=== PATIENT | female | born 1935 | race Caucasian/White ===

== ENCOUNTER 2018-07-28 17:15 | Inpatient (IN) | payer OTHER ==
[~2018-07-28] VITALS: Ht 162.6 cm; Wt 51.0 kg
[~2018-07-28 17:15] MED LIST: AML5T GT; BENA20TA14 PO; LOVA20TA4 PO; RANI-229 PO
[2018-07-28 18:45] LABS: Basophils # (auto) 0 uL; Basophils % (auto) 0.5 % (0.0-2.0); Eosinophils # (auto) 0.1 uL; Eosinophils % (auto) 2.6 % (0.0-7.0); Hematocrit 25.3 % (36.0-46.0); Hemoglobin 8.8 g/dL (12.2-16.2); Lymphocytes # (auto) 0.4 uL; Mean Corpuscular Hemoglobin 31.8 pg (28.0-32.0); Mean Corpuscular Hgb Conc. 34.7 g/dL (32.0-36.0); Mean Corpuscular Volume 91.8 fL (80.0-100.0); Monocytes # (auto) 0.6 uL; Monocytes % (auto) 10.1 % (0.0-12.0); Neutrophils # (auto) 4.5 uL; Neutrophils % (auto) 79.8 % (37.0-80.0); Platelet Count (auto) 338 10^3/uL (140-450); Red Blood Cells 2.76 10^6/uL (4.0-5.20); Red Cell Distribution Width 17.2 % (11.8-14.3); White Blood Cell 5.7 10^3/uL (4.4-10.8)
[2018-07-28] MEDS ORDERED: methylPREDNISolone SOD SUCC 125 MG/2 ML VL IV ONE (19:00)
[2018-07-28] MEDS ORDERED: cefTRIAXone 1GM/50ML D5W 50 ML IV ONE (19:00)
[2018-07-28] MEDS ORDERED: IPRATROPIUM BROM 0.5 MG/2.5ML INH SOL NEB ONE (19:00)
[2018-07-28] MEDS ORDERED: ALBUTEROL SULF 2.5 MG/0.5ML(0.5%) NEB SOLN NEB ONE (19:00)
[2018-07-28 19:23] LABS: Albumin 2.7 g/dL (3.4-5.0); Calcium 7.6 mg/dL (8.5-10.1); Magnesium 2.4 mg/dL (1.6-2.6); Potassium 4.8 mmol/L (3.5-5.1)
[2018-07-28 19:28] LABS: BUN/Creatinine Ratio 25.8; Bilirubin, Total 0.6 mg/dL (0.2-1.0); Total Protein 6.4 g/dL (6.4-8.2)
[2018-07-28] MEDS: MAGNESIUM SULFATE 1GM/100ML 100 ML IV SCH ×2 (19:30→20:30)
[2018-07-28] MEDS ORDERED: TEMAZEPAM 15 MG CAP PO PRN (21:15)
[2018-07-28] MEDS ORDERED: HYDROcodone-ACET 5/325MG TAB PO PRN (21:15)
[2018-07-28] MEDS ORDERED: ACETAMINOPHEN 325 MG TAB PO PRN (21:15)
[2018-07-28] MEDS ORDERED: ONDANSETRON HCL 4 MG/2 ML VIAL IV PRN (21:15)
[2018-07-28] MEDS ORDERED: NITROGLYCERIN 0.4 MG SL TAB SL PRN (21:15)
[2018-07-28] MEDS ORDERED: MORPHINE SULFATE 4 MG/ML SYR/VIAL IV PRN (21:15)
[2018-07-28] MEDS ORDERED: ALBUTEROL SULF 2.5 MG/0.5ML(0.5%) NEB SOLN NEB PRN (21:15)
[2018-07-28] MEDS ORDERED: DEXTROSE (50%) 50ML SYRG IV PRN (21:15)
--- NOTE | 2018-07-28 22:15 | NUR ---
Telemetry admit from ER DOLORES,LADARIUS URIAS admitted to Telemetry unit after SBAR received. Patient oriented to Nidhi Bright, primary RN, unit, room, bed, and unit policies regarding patient care and visiting hours. Patient now on continuous telemetry monitoring, tele box # 12 and telemetry reading on arrival to unit is sinus rhythm. Patient placed on bedside oxygen, weighed by bedscale and encouraged to call if they need something. All questions and concerns addressed, patient verbalized understanding.
[2018-07-28 22:30] VITALS: BP 144/65
[2018-07-28] MEDS ORDERED: ASPirin 81 mg TAB PO ONE (22:30)
[2018-07-28 22:41] LABS: Lactic Acid w/Reflex 2.1 mmol/L (0.4-2.0)
[2018-07-28 22:45] VITALS: BP 144/65
[2018-07-28] MEDS: FAMOTIDINE 20 MG TAB PO SCH (22:48)
[2018-07-28] MEDS: ATORVASTATIN 20 MG TAB PO SCH (22:48)
[2018-07-28] MEDS ORDERED: LEVOFLOXACIN 500MG 100 ML IV ONE (23:00)
[2018-07-28 23:15] LABS: Urine Bacteria NONE SEEN /hpf (None Seen); Urine Blood Negative /uL (Negative); Urine Specific Gravity 1.016 (1.001-1.035); Urine WBC <1 /hpf (0 - 5)
[2018-07-28] MEDS: ACCU-CHEK COMFORT CURVE STRIP VI SCH (23:49)
[2018-07-28] MEDS: InsuLIN REG 1unit/0.01ml Soln (100units/ml) SC SCH (23:49)
[2018-07-29] VITALS (7 sets, daily range): BP systolic 108–155; BP diastolic 47–84
--- NOTE | 2018-07-29 00:15 | NUR ---
Patient states that after receiving the Insulin, she felt anxious and excited and never received Insulin before. Patient doesn't want to receive Insulin anymore.
--- NOTE | 2018-07-29 00:30 | NUR ---
Respiratory note: PT ALERT AND AWAKE HR 94 RR 18 SPO2 97% BS DIMINISHED BILATERALLY. PRN MED NEB TX NOT INDICATED AT THIS TIME PT REMAINS STABLE WITH NO RESPIRATORY DISTRESS NOTED WILL CONTINUE TO MONITOR PT ORDERED.
[2018-07-29 05:37] LABS: Basophils # (auto) 0 uL; Basophils % (auto) 0.1 % (0.0-2.0); Eosinophils # (auto) 0 uL; Hemoglobin 8.6 g/dL (12.2-16.2); Lymphocytes # (auto) 0.2 uL; Lymphocytes % (auto) 4.8 % (10.0-50.0); Mean Corpuscular Hemoglobin 31.5 pg (28.0-32.0); Mean Corpuscular Hgb Conc. 34.5 g/dL (32.0-36.0); Mean Corpuscular Volume 91.2 fL (80.0-100.0); Monocytes # (auto) 0 uL; Monocytes % (auto) 0.9 % (0.0-12.0); Neutrophils # (auto) 3.3 uL; Neutrophils % (auto) 94.2 % (37.0-80.0); Nucleated Red Blood Cells % 0.2 %; Platelet Count (auto) 333 10^3/uL (140-450); Red Blood Cells 2.74 10^6/uL (4.0-5.20); Red Cell Distribution Width 17.1 % (11.8-14.3); White Blood Cell 3.5 10^3/uL (4.4-10.8)
[2018-07-29] MEDS: InsuLIN REG 1unit/0.01ml Soln (100units/ml) SC SCH ×4 (06:00→23:19)
[2018-07-29] MEDS: ACCU-CHEK COMFORT CURVE STRIP VI SCH ×4 (06:29→23:19)
--- NOTE | 2018-07-29 06:30 | NUR ---
Accu check is 145, patient refused Insulin, continue care.
[2018-07-29 06:38] LABS: Potassium 4.8 mmol/L (3.5-5.1)
[2018-07-29 06:39] LABS: Albumin 2.5 g/dL (3.4-5.0); BUN/Creatinine Ratio 26.7; Bilirubin, Total 0.7 mg/dL (0.2-1.0); Calcium 7.6 mg/dL (8.5-10.1); Total Protein 6.1 g/dL (6.4-8.2)
--- NOTE | 2018-07-29 07:32 | NUR ---
Care endorsed to Edith ALMARAZ.
--- NOTE | 2018-07-29 07:35 | NUR ---
Opening Shift Note Assumed care of patient, awake and alert. No S/S of distress/SOB or pain. Instructed on POC-await for cardiology consult, 2D ECHO test to be performed. Patient informed to call for assist PRN, will continue to monitor for changes Q1hr and PRN.
[2018-07-29] MEDS: ASPirin 81 mg TAB PO SCH (09:44)
[2018-07-29] MEDS: BENAZEPRIL HCL 10 MG TAB PO SCH (09:45)
[2018-07-29] MEDS: CLOPIDOGREL BISULFATE 75 MG TAB PO SCH (09:45)
[2018-07-29] MEDS: FAMOTIDINE 20 MG TAB PO SCH ×2 (09:45→23:06)
[2018-07-29] MEDS: amLODIPine BESYLATE 5 MG TAB PO SCH (09:46)
[2018-07-29] MEDS ORDERED: ENOXAPARIN SOD 40 MG/0.4 ML SYRINGE SC SCH (10:00)
--- NOTE | 2018-07-29 10:39 | NUR ---
PRN MEDNEB CHECK. NO TX INDICATED AT THIS TIME. SPO2 98% ON 2L NC HR 85 RR 20 B/S CLEAR/DIMINISHED. PT AWARE TO CALL RN AND HAVE THEM PAGE RT IF THEY BECOME SOB.
[2018-07-29] MEDS ORDERED: FUROSEMIDE 20 MG TAB PO ONE (15:45)
[2018-07-29] MEDS ORDERED: FUROSEMIDE 40 MG/4 ML VIAL IV SCH (18:00)
--- NOTE | 2018-07-29 18:16 | NUR ---
PRN MED NEB ASSESSMENT. PT DENIES SOB. NO DISTRESS NOTED AT THIS TIME. HR 96 RR 18 BS CLEAR AND DIMINISHED POX 98% ON 2 L NC. TX NOT GIVEN.
[2018-07-29] MEDS ORDERED: LEVOFLOXACIN 500MG 100 ML IV SCH (21:00)
[2018-07-29] MEDS: ENOXAPARIN SOD 60 MG/0.6 ML SYRINGE SC SCH (23:03)
[2018-07-29] MEDS: ATORVASTATIN 20 MG TAB PO SCH (23:06)
[2018-07-30 05:16] VITALS: BP 104/53
[2018-07-30] MEDS ORDERED: FUROSEMIDE 20 MG TAB PO SCH (06:00)
[2018-07-30] MEDS: InsuLIN REG 1unit/0.01ml Soln (100units/ml) SC SCH ×2 (06:00→12:00)
[2018-07-30] MEDS: ACCU-CHEK COMFORT CURVE STRIP VI SCH ×2 (06:20→12:00)
--- NOTE | 2018-07-30 07:25 | NUR ---
OPENING SHIFT NOTE Received bedside report from night RN Kentrell. Pt resting up to the bathroom, alert and oriented., bed locked, in low pos., rails up x 2, call light in reach.
[2018-07-30 08:00] VITALS: BP 126/60
[2018-07-30] MEDS: ENOXAPARIN SOD 60 MG/0.6 ML SYRINGE SC SCH (09:37)
[2018-07-30] MEDS: ASPirin 81 mg TAB PO SCH (09:38)
[2018-07-30] MEDS: CLOPIDOGREL BISULFATE 75 MG TAB PO SCH (09:38)
[2018-07-30] MEDS: amLODIPine BESYLATE 5 MG TAB PO SCH (09:41)
[2018-07-30] MEDS: BENAZEPRIL HCL 10 MG TAB PO SCH (09:44)
[2018-07-30] MEDS ORDERED: FAMOTIDINE 20 MG TAB PO SCH (10:00)
--- NOTE | 2018-07-30 10:30 | NUR ---
Respiratory note: PT ASSESSED FOR PRN MEDNEB TX. PT IN NO RESPIRATORY DISTRESS. NO TX INDICATED AT THIS TIME. SPO2 98% ON 2 NC HR 80 RR 20 B/S CLEAR. PT AWARE TO CALL RN AND HAVE THEM PAGE RT IF PT BECOMES SOB.
[2018-07-30 12:00] VITALS: BP 105/52
[2018-07-30 12:21] LABS: % Iron Saturation 19.2 % (15-50)
--- NOTE | 2018-07-30 14:49 | NUR ---
MD VISITS SANJUANITA MALDONADO AND RADHA both here to see patient. Patient's oxygen satuation on room air is 92%. So no need for home oxygen. Van Driver Helper from [employer] will follow-up with the patient, if the patient goes home today.
[2018-07-30] MEDS ORDERED: CLOP75TA41 (14:55)
[2018-07-30] MEDS ORDERED: FURO20TA GT (14:56)
[2018-07-30] MEDS ORDERED: POTA10TA79 PO (14:56)
--- NOTE | 2018-07-30 15:31 | NUR ---
MD ZULUAGA (ONCOLOGY) SPOKE ON PHONE WITH DR. KAUFFMAN, AND HE HAS CLEARED THE PATIENT TO GO HOME.
--- NOTE | 2018-07-30 15:39 | NUR ---
CALL TO [facility] Spoke to Mr. Juan Pedro of [facility] and have him patient information. He will set up for a shoe parts caser from [facility] to come see the patient today, since the patient is being discharged.
--- NOTE | 2018-07-30 16:18 | NUR ---
FAMILY CALLED Spoke to the family who will be coming here to take patient home. Asked them to bring warm clothes and there may be a wait while a public relations representative from [employer] coming to see patient prior to discharge.
[2018-07-30 16:23] VITALS: BP 105/52
--- NOTE | 2018-07-30 18:20 | NUR ---
DISCHARGE DISCHARGE INSTRUCTIONS GIVEN, TELEMETRY REMOVED AND RETURNED TO [facility]., HAS PRESCRIPTIONS FOR LASIX, LEVAQUIN, AND POTASSIUM. HAS ALL BELONGINGS, INCL CELL PH AND TRAFFIC ANALYST. TOLD THEM THAT LUISA OF [facility] WILL BE IN CONTACT WITH THEM FOR THE FOLLOWUP APPOINTMENTS WITH HER PCP, ONCOLOGIST AND CLINICAL DOCUMENTATION MANAGER. PATIENT VERBALIZED UNDERSTANDING. REMOVED IV, PT TOLERATED WILL. NO DISTRESS NOTED. WHEELED PATIENT TO HER VEHICLE WHERE HER FAMILY WILL DRIVE HER HOME.
--- NOTE | 2018-07-31 16:07 | NUR ---
assessment Patient discharged prior to being assessed. Addendum: 07/31/18 at 1608 by Megan CARTWRIGHT Amended: Links added.
[2018-08-01] MEDS ORDERED: POTASSIUM CHL 10 Meq TABLET PO SCH (10:00)
== END 2018-07-30 18:39 | disposition home or self-care (01) | DRG 280 ==
LOC: ER 17:16 → TELE 21:14 → TELE-WESTW 22:15
PROVIDERS: ADMIT Nurse Practitioner; ATTEND Internal Medicine
DX: I21.4 Non-ST elevation (NSTEMI) myocardial infarction (principal); J18.9 Pneumonia, unspecified organism; J96.00 Acute respiratory failure, unspecified whether with hypoxia or hypercapnia; I13.0 Hypertensive heart and chronic kidney disease with heart failure and stage 1 through stage 4 chronic kidney disease, or unspecified chronic kidney disease; J91.0 Malignant pleural effusion; I50.42 Chronic combined systolic (congestive) and diastolic (congestive) heart failure; I42.0 Dilated cardiomyopathy; C34.92 Malignant neoplasm of unspecified part of left bronchus or lung; Z82.49 Family history of ischemic heart disease and other diseases of the circulatory system; Z82.3 Family history of stroke; Z80.9 Family history of malignant neoplasm, unspecified; N18.9 Chronic kidney disease, unspecified; J43.9 Emphysema, unspecified; I70.0 Atherosclerosis of aorta; I25.2 Old myocardial infarction; E11.22 Type 2 diabetes mellitus with diabetic chronic kidney disease; D64.9 Anemia, unspecified; Z83.3 Family history of diabetes mellitus; Z85.3 Personal history of malignant neoplasm of breast; Z86.010 Personal history of colon polyps; Z86.73 Personal history of transient ischemic attack (TIA), and cerebral infarction without residual deficits; Z87.891 Personal history of nicotine dependence; Z90.13 Acquired absence of bilateral breasts and nipples; Z90.710 Acquired absence of both cervix and uterus; Z92.3 Personal history of irradiation
CPT/HCPCS: 36415; 36600; 71046; 80053; 81001; 82728; 82805; 82962; 83540; 83550; 83605; 83735; 83880; 84484; 85025; 87081; 93005; 93306; 94640; 96365; 96367; 96375; G0378; J0696; J1815; J1956